=== PATIENT | male | born 1965 | race Caucasian/White ===

== ENCOUNTER → 2021-04-19 14:13 | Outpatient (CLI) | payer OTHER, SELFPAY ==
[2021-04-19 14:56] LABS: COVID19 -Nasal RAPID Negative (Negative)
== END ==
PROVIDERS: Visit Provider Family Medicine Sleep Medicine
DX: Z20.822 Contact with and (suspected) exposure to COVID-19 (principal)
CPT/HCPCS: 87635; C9803

== ENCOUNTER 2021-04-22 10:46 | Day surgery (SDC) | payer OTHER, SELFPAY ==
[2021-04-22 12:03] VITALS: BP 161/88; PULSE 94; RESP 16; TEMP 37.1; O2SAT 97
[2021-04-22] MEDS: SODIUM CHLORIDE 0.9% 1,000 ML 84 ML IV (12:15)
--- NOTE | 2021-04-22 13:01 | PM.HP.1 ---
History of Present Illness History of Present Illness Date Patient Seen: 04/22/21 Time Patient Seen: 13:01 Chief complaint: SDC Narrative: I reviewed my recent office note. No significant changes. Patient History Medical History Colon polyps ETOH abuse Gastroesophageal reflux disease without esophagitis HTN (hypertension) Hypercholesteremia Surgical History History of mandibular surgery Hx of LASIK Family & Social History Social History: household members spouse Tobacco & Substance use: Smoking Status Former smoker alcohol intake current alcohol intake frequency 0-2 drinks per day Meds Home Medications and Allergies Home Medications Medication Instructions Recorded Confirmed Type atorvastatin 20 mg tablet 20 mg PO DAILY 04/19/21 04/19/21 History lisinopril 20 mg tablet 20 mg PO DAILY 04/19/21 04/22/21 History omeprazole 20 mg capsule,delayed 20 mg PO DAILY 04/19/21 04/22/21 History release Allergies Allergy/AdvReac Type Severity Reaction Status Date / Time No Known Drug Allergies Allergy Verified 04/19/21 15:52 Review of Systems Review of Systems ROS: Yes All systems reviewed with the patient and are negative except as otherwise documented Exam Vital Signs (past 8 hours): - 04/22/21 12:03 Temperature 98.8 F Pulse Rate 94 H Respiratory Rate 16 Blood Pressure 161/88 H Pulse Oximetry 97 Oxygen Delivery Method Room Air Const General: cooperative and comfortable Orientation: alert HENMT Head: normocephalic Ears: external ears normal Nose: external nose normal Face and sinus: normal facial exam Mouth: oral mucosae normal Eyes General: appearance normal, both eyes and all related structures Neck Neck: normal visual inspection Chest Chest: normal inspection of the chest Resp Effort & Inspection: normal respiratory effort Cardio Rate: regular rate GI Inspection: normal to inspection Skin General: no rashes or lesions noted and No jaundice Neuro General: patient alert and moves all extremities Cognition: normal cognition Speech: speech normal Extrem General: no pedal edema Psych Appearance: grossly normal Assessment & Plan Assessment & Plan narrative: 55-year-old male with alcoholic liver disease. There has been some concern about underlying cirrhosis and portal hypertension. Variceal screening is therefore indicated for today. Time Spent With Patient Critical Care time: I spent a total of [] minutes of critical care time on this patient's care today; this time is exclusive of procedural time.
--- NOTE | 2021-04-22 13:03 | PM.PREOP ---
Pre-operative Note COVID-19 COVID-19 status: Negative Result date/Date tested (Pos, Neg/Pending): 04/19/21 Criteria for continued procedure: Possibility delay results in more complex future surgery or treatment Interval Note History & Physical reviewed/Exam performed by Physician: Yes Changes to H&P: No ASA Class (for procedural sedation): II
--- NOTE | 2021-04-22 14:55 | P.OP.EGD_ITS ---
Operative Date/Time/Diagnoses Date of procedure: 04/22/21 Time of procedure: 14:56 Pre-op diagnosis: Alcoholic liver disease indicated for variceal screening Post-op diagnosis: same Procedure & Clinicians Study performed: EGD Same procedure as scheduled: Yes Indications: Alcoholic liver disease indicated for variceal screening Surgeon: Corey Judge Procedure Notes SCOAP/Timeout: Done Procedure in detail: After the risks and benefits were explained, written and verbal informed consent was obtained. The patient was brought into the procedure room and placed into the left lateral decubitus position. Please see nurse manager [employer] notes for sedation details. scope was introduced into the mouth through the bite block and advanced under direct visualization to the 2nd portion of the duodenum. The scope was slowly withdrawn carefully examining the mucosa for any defects or lesions. Retroflexed views were accomplished in the stomach. The stomach was decompressed, the scope was then removed from the patient who tolerated the procedure well. Sedation minutes: 4 Specimen(s): none sent Complications: none Impression: 1. Duodenum: This was normal from the bulb through the 2nd portion. 2. Stomach: Patient had some streaky erythema in the region of the antrum no ulcers no outlet obstruction no mass lesions retroflexed views of the LES were unremarkable. No evidence of gastric varices. There were a couple of diminutive benign-appearing gastric polyps that were left alone. 3. Esophagus: The GE junction was at 45 cm from the incisors. No acute erosive changes no strictures no mass lesions no acute erosive esophagitis. There was no evidence of any esophageal varices. Endoscopic diagnosis 1. No esophageal varices 2. Mild gastropathy 3. Diminutive gastric polyps Post-procedure Plan for aftercare: 1. Repeat EGD for variceal screening in 3 years 2 Continue efforts with respect to alcohol abstinence. 3. Follow up GI clinic any time as needed. 4. Continue to follow along in primary care as before Disposition: PACU
[2021-04-22 15:00] VITALS: BP 122/74; PULSE 70; RESP 13; TEMP 36.4; O2SAT 98
[2021-04-22 15:05] VITALS: BP 134/79; PULSE 71; RESP 16; O2SAT 98
[2021-04-22 15:10] VITALS: BP 146/90; PULSE 75; RESP 19; TEMP 36.6; O2SAT 98
[2021-04-22 15:26] VITALS: BP 140/90; BP 150/94; PULSE 70; PULSE 97; RESP 21; TEMP 37.3; O2SAT 96; O2SAT 98
[2021-04-22 15:45] VITALS: BP 150/90; PULSE 77; RESP 16; O2SAT 98
== END 2021-04-22 15:50 | disposition home or self-care (01) ==
PROVIDERS: Referring Provider Internal Medicine Gastroenterology; Visit Provider Internal Medicine Gastroenterology
PROC: 0DJ08ZZ Inspection of Upper Intestinal Tract, Via Natural or Artificial Opening Endoscopic (ICD-10-PCS; CPT 43235; principal; 2021-04-22 14:00)
DX: K70.9 Alcoholic liver disease, unspecified (principal); R94.5 Abnormal results of liver function studies; K31.9 Disease of stomach and duodenum, unspecified; K31.7 Polyp of stomach and duodenum
CPT/HCPCS: 43235; J2250; J2704; J3010

== ENCOUNTER 2023-12-16 07:05 | Day surgery (SDC) | payer OTHER, SELFPAY ==
[2023-12-16 07:20] VITALS: BP 140/68; PULSE 102; RESP 18; TEMP 36.6; O2SAT 99
[2023-12-16] MEDS: LACTATED RINGERS 1,000 ML 42 ML IV (07:32)
--- NOTE | 2023-12-16 08:33 | PM.HP.1 ---
History of Present Illness History of Present Illness Date Patient Seen: 12/16/23 Chief complaint: SDC Narrative: History of cirrhosis and history of adenomatous colon polyps [facility], [facility] Medical History Colon polyps ETOH abuse Gastroesophageal reflux disease without esophagitis HTN (hypertension) Hypercholesteremia Surgical History History of mandibular surgery Hx of LASIK Social History household members: spouse Smoking Status: Former smoker alcohol intake: current Meds Home Medications and Allergies Home Medications Medication Instructions Recorded Confirmed Type atorvastatin 20 mg tablet 20 mg PO DAILY 04/19/21 12/16/23 History lisinopril 20 mg tablet 40 mg PO DAILY 04/19/21 12/16/23 History omeprazole 20 mg capsule,delayed 20 mg PO DAILY 04/19/21 12/16/23 History release Allergies Allergy/AdvReac Type Severity Reaction Status Date / Time No Known Drug Allergies Allergy Verified 12/16/23 07:32 Exam Vital Signs (past 8 hours): - 12/16/23 07:20 Temperature 98 F Pulse Rate 102 H Respiratory Rate 18 Blood Pressure 140/68 Pulse Oximetry 99 Oxygen Delivery Method Room Air Oxygen Delivery Method Room Air Narrative Exam Narrative: oropharynx free of lesion Chest clear to auscultation percussion Assessment & Plan Assessment & Plan narrative: history of cirrhosis need for follow-up EGD to rule out varices. Risks, benefits, alternatives have been explained. Follow up colonoscopy to be done to rule out adenomatous colon polyps. Risks benefits and alternatives been explained. Time-Based Coding :: [TOTAL MINUTES] spent with patient and on the chart (including review of chart, obtaining history, exam, reviewing outside data, placing orders, documenting exam and treatment plan, and counseling patient) on [DATE].
--- NOTE | 2023-12-16 08:35 | PM.OP.EC ---
Operative Date/Time/Diagnoses Date of procedure: 12/16/23 Pre-op diagnosis: See indications the findings Procedure & Clinicians Study performed: EGD and colonoscopy Indications: cirrhosis and history of polyps Surgeon: Marin Mcclelland Procedure Notes Procedure in detail: after informed consent was obtained the patient was placed in left lateral decubitus position. The video upper scope placed into the oropharynx and with the patient's help swallowed into the esophagus. The esophagus stomach and duodenum were carefully examined. On withdrawal, retroflexed view the GE junction was performed. The scope was removed. The patient tolerated procedure well. Blood loss none Complications none Sedation mac Findings EGD 1. Multiple white plaques throughout the esophagus consistent with Bela esophagitis 2. Normal GE junction without varices or esophagitis 3. Normal stomach without evidence of portal gastropathy 4. Normal duodenal bulb and sweep Colonoscopy 1. Normal colonoscopy to cecum Patient should have follow-up colonoscopy in 5 years and follow-up EGD in 1-2 years. Javier will be called in for him because of his Bela esophagitis.
[2023-12-16 09:11] VITALS: BP 91/65; PULSE 84; RESP 18; TEMP 36.6; O2SAT 94
[2023-12-16 09:18] VITALS: BP 92/64; PULSE 76; RESP 17; O2SAT 95
[2023-12-16 09:23] VITALS: BP 111/78; PULSE 74; RESP 21; O2SAT 98
[2023-12-16 09:27] VITALS: BP 124/88; PULSE 74; RESP 19; TEMP 36.6; O2SAT 97
[2023-12-16 09:29] VITALS: BP 127/95; PULSE 73; RESP 17; O2SAT 98
== END 2023-12-16 10:06 | disposition home or self-care (01) ==
PROVIDERS: Referring Provider Internal Medicine Gastroenterology; Visit Provider Internal Medicine Gastroenterology
PROC: 0DJ08ZZ Inspection of Upper Intestinal Tract, Via Natural or Artificial Opening Endoscopic (ICD-10-PCS; CPT 43235; principal; 2023-12-16 08:30)
PROC: 0DJD8ZZ Inspection of Lower Intestinal Tract, Via Natural or Artificial Opening Endoscopic (ICD-10-PCS; CPT 45378; 2023-12-16 08:30)
DX: Z12.11 Encounter for screening for malignant neoplasm of colon (principal); Z86.0100 Personal history of colon polyps, unspecified; K70.30 Alcoholic cirrhosis of liver without ascites; B37.81 Candidal esophagitis
CPT/HCPCS: 45378; 43235; J2704

== ENCOUNTER → 2024-03-01 14:53 | Outpatient (CLI) | payer OTHER, SELFPAY ==
--- NOTE | 2024-03-01 14:55 | DI.US.S_ITS ---
PROCEDURE: US ABDOMEN LIMITED INDICATIONS: Alcoholic liver disease, unspecified TECHNIQUE: Real-time focused scanning was performed of the abdomen, with image documentation. COMPARISON: None. FINDINGS: The liver demonstrates normal size. The liver demonstrates generalized moderately increased echogenicity. This decreases ultrasound sensitivity for detection of hepatic masses. No findings of gallstones or sludge are seen. The gallbladder wall is not thickened, measuring 3 mm or less. No specific pericholecystic fluid is seen. The sonographic Ojeda sign is negative. There is no biliary dilatation, the common bile duct measures 4 mm. No significant pancreatic abnormality is seen on these images. IMPRESSION: The liver demonstrates increased echogenicity. This finding is nonspecific, yet it is most commonly attributed to fatty infiltration. However, differential diagnosis includes cirrhosis and fibrosis in this patient in this patient with this given history. Dictated by: Franklin Good M.D. on 03/01/2024 at 14:53 Approved by: Franklin Good M.D. on 03/01/2024 at 14:53
== END ==
PROVIDERS: Referring Provider Physician Assistant; Visit Provider Physician Assistant
DX: K70.9 Alcoholic liver disease, unspecified (principal)
CPT/HCPCS: 76705

== ENCOUNTER → 2024-12-28 06:22 | Outpatient (CLI) | payer OTHER, SELFPAY ==
--- NOTE | 2024-12-28 06:23 | DI.US.S_ITS ---
PROCEDURE: US ABDOMEN LIMITED INDICATIONS: Abnormal levels serum enzymes TECHNIQUE: Real-time scanning was performed of the abdominal and retroperitoneal organs, with image documentation. COMPARISON: [facility], [place], US ABDOMEN LIMITED, 03/01/2024, 15:14. FINDINGS: Liver: Liver parenchyma is hyperechoic and homogeneous. No mass, cirrhosis or intrahepatic biliary dilation. . 1.2 cm posterior right liver simple cyst. Main portal vein demonstrates hepatopetal flow. Main portal vein measures 1.3 cm in diameter. Gallbladder: No gallstones. No wall thickening. No pericholecystic edema. Negative sonographic Ojeda's sign. Biliary ducts: Intrahepatic bile ducts are non-dilated. Extrahepatic bile duct caliber measures 5.2 mm. Normal is 6-7 mm or less in diameter, or 10 mm or less post-cholecystectomy. Pancreas: Limited visualization of the pancreas head and tail due to bowel gas. Given the limitations, no gross pancreatic abnormality. Miscellaneous: No free abdominal fluid. Study limited due to bowel gas. IMPRESSION: Echogenic probably fatty liver with simple 1.2 cm right liver cyst. Normal gallbladder and CBD. Study limited by bowel gas artifacts. Dictated by: Kianna Gallo M.D. on 12/28/2024 at 9:09 Approved by: Kianna Gallo M.D. on 12/28/2024 at 9:13
== END ==
LOC: US 06:23
DX: K76.0 Fatty (change of) liver, not elsewhere classified (principal); K76.89 Other specified diseases of liver; R74.8 Abnormal levels of other serum enzymes; F10.20 Alcohol dependence, uncomplicated
CPT/HCPCS: 76705

== ENCOUNTER → 2025-01-20 15:37 | Outpatient (CLI) | payer OTHER, SELFPAY ==
--- NOTE | 2025-01-20 15:40 | DI.MRI.S_ITS ---
PROCEDURE: MR LUMBAR SPINE WO CON INDICATIONS: BACK PAIN TECHNIQUE: Noncontrast sagittal T1 spin echo and T2 fast echo, sagittal STIR, and T2 fast spin echo through the lumbar spine. In cases with scoliosis, additional coronal T2 fast spin echo may be performed. COMPARISON: None. FINDINGS: Image quality: Excellent. Alignment and Curvature: There is normal bony alignment. Bone Marrow: Marrow is of normal overall signal. No acute vertebral body compression fractures. Spinal Cord: Conus medullaris terminates at the L2-L3 level. Visualized cord demonstrates normal signal and size. Paraspinous Soft Tissues: No paravertebral masses. T12-L1: No spinal canal or neural foraminal stenosis. L1-L2: No spinal canal or neural foraminal stenosis. L2-L3: Disc bulge and mild facet and ligamentum flavum hypertrophy. No spinal canal or neural foraminal stenosis. L3-L4: Disc bulge and facet and ligamentum flavum hypertrophy causing minimal left neural foraminal narrowing. No spinal canal narrowing. L4-L5: Disc bulge and facet and ligamentum flavum hypertrophy causing mild bilateral neural foraminal narrowing and mild spinal canal narrowing. L5-S1: Disc bulge and bilateral facet arthropathy causing [id number] bilateral neural foraminal narrowing. No spinal canal stenosis. IMPRESSION: Multilevel degenerative changes of the lumbar spine as above, with neural foraminal narrowing most prominent L5-S1, where there is mild to moderate narrowing bilaterally. No high-grade spinal canal narrowing at any level. Conus medullaris terminates at the L2-L3 level, likely normal variant. Dictated by: Daryl Friend M.D. on 01/21/2025 at 23:37 Approved by: Daryl Friend M.D. on 01/21/2025 at 23:45
== END ==
DX: M51.16 Intervertebral disc disorders with radiculopathy, lumbar region (principal); M51.17 Intervertebral disc disorders with radiculopathy, lumbosacral region; M48.061 Spinal stenosis, lumbar region without neurogenic claudication; M48.07 Spinal stenosis, lumbosacral region; M47.26 Other spondylosis with radiculopathy, lumbar region; M47.27 Other spondylosis with radiculopathy, lumbosacral region; M54.50 Low back pain, unspecified
CPT/HCPCS: 72148